=== PATIENT | female | born 1965 | race Caucasian/White ===

== ENCOUNTER → 2016-08-22 | Outpatient (CLI) | payer BC ==
[2016-08-22 16:44] LABS: Follicle Stimulating Hormone 48.9 mIU/mL
== END | disposition home or self-care (01) ==
LOC: LABWHC1 15:47
PROVIDERS: ATTEND Obstetrics & Gynecology
DX: G40.909 Epilepsy, unspecified, not intractable, without status epilepticus (principal); E66.3 Overweight; N92.6 Irregular menstruation, unspecified
CPT/HCPCS: 36415; 80184; 82670; 83001; 83002; 84439; 84443

== ENCOUNTER → 2017-08-10 | Outpatient (CLI) | payer BC ==
--- NOTE | 2017-08-10 19:50 | MR ---
EXAMINATION TYPE: MR brain wo con DATE OF EXAM: 08/10/2017 COMPARISON: NONE HISTORY: idiopathic epilepsy CONTRAST: Performed utilizing 0 mL intravenous Gadavist gadolinium contrast. TECHNIQUE: Multiplanar, multiecho imaging on a 3.0 Kaitlynn magnet is performed through the brain. Stud y is performed within 24 hours of arrival to the hospital. The craniovertebral junction is normal. The pituitary is normal. Diffusion-weighted imaging is performed. No abnormal hyperintensity is present to suggest an acute i ntracranial infarct or acute ischemic change. There are scattered punctate areas of hyperintensity on T2 and Inversion Recovery weighted sequences which are non-specific but can be related to microvascular ischemic changes. There is an old lacunar infarct within the left basal lesion. Ventricles and sulci are appropriate for the patient age. IMPRESSIONS: 1. Scattered periventricular white matter changes. These are nonspecific but could be related to micr ovascular ischemic change. This is out of proportion to the patient's age. Consider other etiologies within the differential.
== END | disposition home or self-care (01) ==
LOC: RADMRIMAIN 11:12
PROVIDERS: ATTEND Psychiatry & Neurology Neurology
DX: R90.82 White matter disease, unspecified (principal); G40.009 Localization-related (focal) (partial) idiopathic epilepsy and epileptic syndromes with seizures of localized onset, not intractable, without status epilepticus
CPT/HCPCS: 70551

== ENCOUNTER → 2019-02-12 | Outpatient (CLI) | payer BC ==
--- NOTE | 2019-02-14 13:54 | MM ---
Reason for exam: screening (asymptomatic). Last mammogram was performed 3 years ago. History: Patient is postmenopausal and is nulliparous. Took hormonal contraceptives for 25 years. Physical Findings: A clinical breast exam by your physician is recommended on an annual basis and results should be correlated with mammographic findings. MG Screening Mammo w CAD Bilateral CC and MLO view(s) were taken. Prior study comparison: February 01, 2016, bilateral MG screening mammo w CAD. May 05, 2005, bilateral screening mammogram w/CAD. The breast tissue is heterogeneously dense. This may lower the sensitivity of mammography. Stable benign calcifications. There is no discrete abnormality. No significant changes when compared with prior studies. ASSESSMENT: Benign, BI-RAD 2 RECOMMENDATION: Routine screening mammogram of both breasts in 1 year.
== END ==
LOC: RADMAMWWP 17:04
PROVIDERS: ATTEND Obstetrics & Gynecology
DX: Z12.31 Encounter for screening mammogram for malignant neoplasm of breast (principal)
CPT/HCPCS: 77067

== ENCOUNTER 2020-01-04 17:10 | Emergency (ER) | payer BC ==
[2020-01-04 17:16] VITALS: BP 136/87; PULSE 72; RESP 18; TEMP 97.4
--- NOTE | 2020-01-04 17:25 | ED ---
General Adult HPI - General Chief complaint: Extremity Injury, Upper Stated complaint: Lt wrist injury Time Seen by Provider: 01/04/20 17:23 Source: patient Mode of arrival: ambulatory Limitations: no limitations - History of Present Illness Initial comments: 54-year-old female presenting to the emergency department with a chief complaint of wrist pain. Patient states this occurred about one hour prior to ever when she was on a sailboat, lost balance and FOOSH. She reports minimal pain is states she has full range of motion. She does report some swelling along the lateral aspect of the wrist. Denies any scaphoid tenderness. Denies taking medication to alleviate the pain. States active range of motion makes the pain slightly worse. Rest is making them better. Denies numbness or tingling. - Related Data Home Medications Medication Instructions Recorded Confirmed PHENobarbital 90 mg PO DAILY 05/03/14 05/03/14 Previous Rx's Medication Instructions Recorded Naproxen Sodium [Anaprox Ds] 550 mg PO Q12HR #20 tab 05/04/14 traMADol HCl [Ultram] 50 mg PO Q4H PRN #20 tab 05/04/14 Allergies Allergy/AdvReac Type Severity Reaction Status Date / Time No Known Allergies Allergy Verified 01/04/20 17:16 Review of Systems ROS Statement: Those systems with pertinent positive or pertinent negative responses have been documented in the HPI. ROS Other: All systems not noted in ROS Statement are negative. Past Medical History Past Medical History: Seizure Disorder History of Any Multi-Drug Resistant Organisms: None Reported Past Surgical History: No Surgical Hx Reported Additional Past Surgical History / Comment(s): D&C Past Psychological History: No Psychological Hx Reported Smoking Status: Never smoker Past Alcohol Use History: Occasional Past Drug Use History: None Reported General Exam Limitations: no limitations General appearance: alert, in no apparent distress Head exam: Present: atraumatic, normocephalic, normal inspection Eye exam: Present: normal appearance, PERRL, EOMI Pupils: Present: normal accommodation ENT exam: Present: normal exam, normal oropharynx, mucous membranes moist, TM's normal bilaterally, normal external ear exam Neck exam: Present: normal inspection, full ROM. Absent: tenderness Respiratory exam: Present: normal lung sounds bilaterally. Absent: respiratory distress, wheezes, rales Cardiovascular Exam: Present: regular rate, normal rhythm, normal heart sounds. Absent: bradycardia, tachycardia Extremities exam: Present: full ROM, tenderness (Mild tenderness along the lateral aspect of her right wrist. No scaphoid tenderness.), normal capillary refill, other (+2 ulnar radial pulses bilaterally.). Absent: normal inspection (Small region of swelling along the lateral aspect of the left wrist.), pedal edema, joint swelling, calf tenderness Back exam: Present: normal inspection, full ROM. Absent: tenderness, CVA tenderness (R), CVA tenderness (L) Neurological exam: Present: alert, oriented X3 Psychiatric exam: Present: normal affect, normal mood Skin exam: Present: warm, dry, intact, normal color Course Vital Signs 01/04/20 17:13 Temperature 97.4 F L Pulse Rate 72 Respiratory 18 Rate Blood Pressure 136/87 O2 Sat by Pulse 99 Oximetry Procedures - Orthopedic Splinting/Casting Injury #1 Side: left Upper Extremity Injury Location: wrist Upper Extremity Immobilizer: volar splint, David wrap, synthetic pre-padded splint Medical Decision Making - Medical Decision Making 54-year-old female presenting to the emergency department with chief complaint of left wrist pain. On Physical examination, she is neurovascularly intact. No scaphoid tenderness. X-ray reveals distal metaphyseal fracture of the left radius. No displacement. Patient was offered analgesia, she declined. Although she did accept Tylenol 3 starter pack to go home with. Full her splint applied. She was advised to follow with business specialist. Return parameters discussed the patient is understanding and agreeable. Case discussed with physician. Disposition Clinical Impression: Left wrist injury, Distal radius fracture, left Disposition: HOME SELF-CARE Condition: Stable Instructions (If sedation given, give patient instructions): Wrist Fracture in Adults (ED) Additional Instructions: Alternate between Tylenol and Motrin for pain control. Follow with orthopedics. Return to emergency department if symptoms worsen. Is patient prescribed a controlled substance at d/c from ED?: No Referrals: Brigitte Ha MD [Primary Care Provider] - 1-2 days Time of Disposition: 19:14
--- NOTE | 2020-01-04 18:57 | XR ---
EXAMINATION TYPE: XR wrist complete LT DATE OF EXAM: 01/04/2020 COMPARISON: None HISTORY: Fall, pain TECHNIQUE: 4 view left wrist FINDINGS: There is a transverse fracture of the distal radius. Overlying soft tissue swelling is pres ent. No additional fractures are evident. Joint spaces appear preserved. If there is pain at the anatomic snuff box, nuclear medicine bone scan or MRI could be performed. IMPRESSION: 1. Distal metaphyseal radial fracture. 2. Soft tissue swelling over the fracture site.
[2020-01-04] MEDS ORDERED: ACET/COD 300 MG/30 MG STARTER PACK 6 TAB BTL PO STA (19:15)
== END 2020-01-04 19:38 | disposition home or self-care (01) ==
LOC: EC 17:10
DX: S52.502A Unspecified fracture of the lower end of left radius, initial encounter for closed fracture (principal); G40.909 Epilepsy, unspecified, not intractable, without status epilepticus; Z79.899 Other long term (current) drug therapy; V93.32XA Fall on board fishing boat, initial encounter; Y92.89 Other specified places as the place of occurrence of the external cause
CPT/HCPCS: 29125; 99283

== ENCOUNTER → 2020-04-16 | Outpatient (CLI) | payer BC ==
--- NOTE | 2020-04-21 15:36 | EM ---
EVENT MONITOR [id number] HOLTER MONITOR: AGE: 55 SEX: Female INDICATIONS: Patient is a 55-year-old female with palpitations. This 24-hour Holter monitor shows sinus mechanism with heart rates ranging from 42 to 136 beats per minute, average 69 beats per minute; occasional daytime bradycardia in the afternoons down to 39 beats per minute; a daytime pause of 3 seconds; occasional nighttime non-sustained atrial tachycardia. MMODAda / VENKATN: [id number] /
== END | disposition home or self-care (01) ==
LOC: RADECHMAIN 11:59
PROVIDERS: ATTEND Family Medicine
DX: R00.2 Palpitations (principal)
CPT/HCPCS: 93225; 93226

== ENCOUNTER → 2020-05-04 | Outpatient (CLI) | payer BC ==
--- NOTE | 2020-05-04 19:26 | BD ---
EXAMINATION TYPE: Axial Bone Density DATE OF EXAM: 05/04/2020 COMPARISON: NONE CLINICAL HISTORY: Postmenopausal screening Height: 65 IN Weight: 179 LBS FRAX RISK QUESTIONS: History of Fracture in Adulthood: LT WRIST AGE 54 RISK FACTORS HISTORY OF: PT STATES SHE HAS SHAURERMANS DISEASE SINCE AGE 15. Family History of Osteoporosis: YES FATHER; GRANDMOTHER(P) Active: YES Postmenopausal woman: AGE 52 Take estrogen and/or progesterone medications: NOT NOW How long: TOOK CONTROL ON AND OFF FOR 20 YEARS MEDICATIONS: Additional Medications: EPILEPSY MEDS, MAGNESIUM, MELATONIN, PROBIOTIC, EXAM MEASUREMENTS: Bone mineral densitometry was performed using the [employer] System. Bone mineral density as measured about the Lumbar spine is: ----- L1-L4(G/cm2): 1.495 T Score Values are as follows: ----- L2: 2.0 ----- L3: 3.0 ----- L4: 2.6 ----- L1-L4: 2.6 Bone mineral density BASELINE Bone mineral density about the R hip (g/cm2): 0.986 Bone mineral density about the L hip (g/cm2): 0.981 T Score values are as follows: -----R Neck: -0.4 -----L Neck: -0.4 -----R Total: -0.2 -----L Total: -0.3 Bone mineral density BASELINE IMPRESSION: Normal (Values between +1 and -1 indicate normal bone mass). Consider repeating this study in 5 year s or sooner if there is some new clinical indication. NOTE: T-SCORE=SD OF THE YOUNG ADULT MEAN.
--- NOTE | 2020-05-06 08:20 | MM ---
Reason for exam: screening (asymptomatic). Last mammogram was performed 1 year and 3 months ago. History: Patient is postmenopausal and is nulliparous. Took hormonal contraceptives for 25 years. Physical Findings: A clinical breast exam by your physician is recommended on an annual basis and results should be correlated with mammographic findings. MG Screening Mammo w CAD Bilateral CC and MLO view(s) were taken. Prior study comparison: February 12, 2019, bilateral MG screening mammo w CAD. February 01, 2016, bilateral MG screening mammo w CAD. The breast tissue is heterogeneously dense. This may lower the sensitivity of mammography. No significant changes when compared with prior studies. ASSESSMENT: Benign, BI-RAD 2 RECOMMENDATION: Routine screening mammogram of both breasts in 1 year.
== END ==
LOC: RADMAMWWP 14:31
PROVIDERS: ATTEND Obstetrics & Gynecology
DX: Z12.31 Encounter for screening mammogram for malignant neoplasm of breast (principal); Z13.820 Encounter for screening for osteoporosis; Z78.0 Asymptomatic menopausal state
CPT/HCPCS: 77067; 77080

== ENCOUNTER → 2020-05-11 | Outpatient (CLI) | payer BC ==
[2020-05-12 02:13] LABS: T4, Free (Free Thyroxine) 1.2 ng/dL (0.80-1.80)
== END | disposition home or self-care (01) ==
LOC: LABWHC1 15:22
PROVIDERS: ATTEND Internal Medicine Interventional Cardiology
DX: R00.1 Bradycardia, unspecified (principal)
CPT/HCPCS: 36415; 84439; 84443

== ENCOUNTER → 2021-02-17 | Outpatient (CLI) | payer BC ==
--- NOTE | 2021-02-17 16:17 | CT ---
EXAMINATION TYPE: CT heart w calcium score DATE OF EXAM: 02/17/2021 COMPARISON: None. HISTORY: Screening for cardiovascular disorder. 213.9 CT DLP: 69.5 mGycm Automated exposure control for dose reduction was used. CT CALCIUM SCORING Coronary calcium is a marker for plaque (fatty deposits) in a blood vessel or atherosclerosis (harden ing of the arteries). The presence and amount of calcium detected in a coronary artery by the CT sca n, indicates the presence and amount of atherosclerotic plaque. These calcium deposits appear years before the development of heart disease symptoms such as chest pain and shortness of breath. A calcium score is computed for each of the coronary arteries based upon the volume and density of th e calcium deposits. This can be referred to as your calcified plaque burden. It does not correspond directly to the percentage of narrowing in the artery but does correlate with the severity of the un derlying coronary atherosclerosis. PROCEDURE TECHNIQUE - Prospective Gating was used. Slice thickness: 3mm. Density threshold (HU): 130, Pixel threshold: 3, Algorithm: discrete. RESULTS Region: LM Calcium Score (Agatston): 0 Volume (mm3): 0 Mass (g): 0 Region: RCA Calcium Score (Agatston): 28.72 Volume (mm3): 37.29 Mass (g): 12.43 Region: LAD Calcium Score (Agatston): 93.16 Volume (mm3): 78.01 Mass (g): 26 Region: CX Calcium Score (Agatston): 45.72 Volume (mm3): 15.15 Mass (g): 45.44 Region: PDA Calcium Score (Agatston): 0 Volume (mm3): 0 Mass (g): 0 Total: Calcium Score (Agatston): 167.6 Volume (mm3): 160.74 Mass (g): 53.58 There is partial visualization dual-lead pacemaker. Overlying lungs are grossly clear. Exaggerated th oracic kyphosis is present. IMPRESSION: Calcium Score: 101-400 Implication: Definite, at least moderate atherosclerotic plaque. Risk of Coronary Artery Disease: Mild coronary artery disease highly likely, significant narrowings p ossible CALCIUM SCORE IMPLICATION RISK OF C ORONARY ARTERY DISEASE 0 No identifiable plaque Very low, generally less than 5% 1-10 Minimal identifiable plaque Very unlikely, less than 10% 11-100 Definite, at least mild atherosclerotic plaque Mild or m inimal coronary narrowings likely 101-400 Definite, at least moderate atherosclerotic plaque Mild coronary ar yoav disease highly likely, significant narrowing possible 401 or Higher Extensive atherosclerotic plaque High lik elihood of at least one significant coronary narrowing
== END | disposition home or self-care (01) ==
LOC: RADCTMAIN 14:57
PROVIDERS: ATTEND Internal Medicine Cardiovascular Disease
DX: I25.10 Atherosclerotic heart disease of native coronary artery without angina pectoris (principal)
CPT/HCPCS: 75571

== ENCOUNTER → 2021-03-19 | Outpatient (CLI) | payer BC ==
--- NOTE | 2021-03-19 16:04 | CT ---
EXAMINATION TYPE: CT abdomen pelvis wo/w con DATE OF EXAM: 03/19/2021 COMPARISON: NONE HISTORY: 48-year-old female pelvic pain and cramping TECHNIQUE: Contiguous axial scanning of the abdomen and pelvis before and after administration of 100 ml Isovue 300 IV contrast. Delayed images through the kidneys and coronal/sagittal reconstructions performed. CT DLP: 1698.2 mGycm Automated exposure control for dose reduction was used. FINDINGS: Pacemaker leads are present. Heart normal size without pericardial effusion. Lung bases delia ar without pleural effusion. Small hiatal hernia. No focal liver lesion or biliary ductal dilatation. Portal venous system is patent. Junctional fold within the gallbladder. No abnormal gallbladder distention. Adrenal glands, kidneys, spleen, and pancreas within normal limits. No dilated small bowel, free fluid, or free air. No mesenteric or retroperitoneal lymphadenopathy. Normal appendix. Oral contrast progressed to the mid transverse colon. Mild overall stool burden. No pericolonic infla mmatory change. Bladder urine distended. Very mild circumferential wall thickening. Uterus anteverted. Right-sided pe lvic phlebolith. Both ovaries are visualized. No abnormal fluid collection in the pelvis. Some promin ent but nonenlarged inguinal lymph nodes measuring up to 9 mm. Bones: Mild degenerative change at the hips. Facet arthropathy mid to lower lumbar spine. Anterior en dplate spondylosis lower thoracic spine. IMPRESSION: 1. MILD CIRCUMFERENTIAL WALL THICKENING OF THE BLADDER MAY BE CHRONIC FOR THE PATIENT. CORRELATE TO E XCLUDE CYSTITIS. 2. IF SYMPTOMS PERSIST, CONSIDER PELVIC ULTRASOUND EVALUATION. 3. SMALL HIATAL HERNIA.
== END | disposition home or self-care (01) ==
LOC: RADCTMAIN 11:55
PROVIDERS: ATTEND Obstetrics & Gynecology
DX: K44.9 Diaphragmatic hernia without obstruction or gangrene (principal)
CPT/HCPCS: 74178; Q9967

== ENCOUNTER → 2021-12-09 | Outpatient (CLI) | payer BC ==
--- NOTE | 2021-12-10 18:06 | MM ---
Reason for Exam: Screening (asymptomatic). Last mammogram was performed 1 year(s) and 7 month(s) ago. Patient History: Menarche at age 11. Patient has no children. Postmenopausal. Patient used Hormonal Contraceptives for 25 years. Risk Values: Alissa 5 year model risk: 1.5%. NCI Lifetime model risk: 8.5%. Prior Study Comparison: 02/01/2016 Bilateral Screening Mammogram, [facility]. 02/12/2019 Bilateral Screening Mammogram, [facility]. 05/04/2020 Bilateral Screening Mammogram, [facility]. Tissue Density: There are scattered fibroglandular densities. Findings: Analyzed By CAD. Chronic nodularity in the posterior left medial lateral oblique view. No suspicious groups of microcalcifications, spiculated or lobular masses, architectural distortion or other secondary signs of malignancy are mammographically apparent. Overall Assessment: Benign, BI-RAD 2 Management: Screening Mammogram of both breasts in 1 year. A negative mammogram report should not preclude additional follow up of suspicious palpable abnormalities. Patient should continue monthly self breast exam. A clinical breast exam by your physician is recommended on an annual basis and results should be correlated with mammographic findings. Electronically signed and approved by: Eric Ramon D.O. Radiologis
== END | disposition home or self-care (01) ==
LOC: RADMAMWWP 16:00
PROVIDERS: ATTEND Family Medicine
DX: Z12.31 Encounter for screening mammogram for malignant neoplasm of breast (principal)
CPT/HCPCS: 77063; 77067

== ENCOUNTER → 2023-03-07 | Outpatient (CLI) | payer BC ==
--- NOTE | 2023-03-07 12:51 | US ---
EXAMINATION TYPE: US extremity nonvasc mass LT DATE OF EXAM: 03/07/2023 COMPARISON: NONE CLINICAL INDICATION: Female, 58 years old with history of m79.662 PAIN LOW LEFT LEG; Left lower leg a ingrid of pain Left lower medial leg: scanned at patient's area of pain - appears wnl IMPRESSION: 1. No suspicious ultrasound abnormality to account for pain at the area of concern.
== END | disposition home or self-care (01) ==
LOC: RADUSWWP 12:16
PROVIDERS: ATTEND Family Medicine
DX: M79.662 Pain in left lower leg (principal)

== ENCOUNTER → 2023-03-23 | Outpatient (CLI) | payer BC ==
--- NOTE | 2023-03-24 20:24 | MM ---
Reason for Exam: Screening (asymptomatic). Last mammogram was performed 1 year(s) and 3 month(s) ago. Patient History: Menarche at age 11. Patient has no children. Postmenopausal. Patient used Hormonal Contraceptives for 25 years. Risk Values: Alissa 5 year model risk: 1.6%. NCI Lifetime model risk: 8.1%. Prior Study Comparison: 02/12/2019 Bilateral Screening Mammogram, [facility]. 05/04/2020 Bilateral Screening Mammogram, [facility]. 12/09/2021 Bilateral MG 3D screening mammo w/cad, [facility]. Tissue Density: There are scattered fibroglandular densities. Findings: Analyzed By CAD. Generator device projecting over the left pectoralis. There is no suspicious group of microcalcifications or new suspicious mass in either breast. Overall Assessment: Benign, BI-RAD 2 Management: Screening Mammogram of both breasts in 1 year. . Patient should continue monthly self-breast exams. A clinical breast exam by your physician is recommended on an annual basis. This exam should not preclude additional follow-up of suspicious palpable abnormalities. Note on Alissa scores and lifetime risk: 1. A Alissa score greater than 3% is considered moderate risk. If this is the case, consider specialist referral to assess eligibility for a risk reducing agent. 2. If overall lifetime risk for the development of breast cancer is 20% or higher, the patient may qualify for future screening with alternating mammogram and breast MRI. Electronically signed and approved by: Florinda Siu M.D. Radiologist
== END | disposition home or self-care (01) ==
LOC: RADMAMWWP 15:00
PROVIDERS: ATTEND Family Medicine
DX: Z12.31 Encounter for screening mammogram for malignant neoplasm of breast (principal); Z78.0 Asymptomatic menopausal state
CPT/HCPCS: 77063; 77067

== ENCOUNTER → 2023-03-24 | Outpatient (CLI) | payer BC ==
[2023-03-24 19:11] LABS: Testosterone <10.00 ng/dL (7.00-45.62)
[2023-03-24 19:52] LABS: Follicle Stimulating Hormone 39.7 mIU/mL
== END | disposition home or self-care (01) ==
LOC: LABWHC1 12:21
PROVIDERS: ATTEND Obstetrics & Gynecology
DX: Z79.890 Hormone replacement therapy (principal)
CPT/HCPCS: 36415; 82670; 83001; 84144; 84403

== ENCOUNTER → 2024-05-17 | Outpatient (CLI) | payer BC ==
--- NOTE | 2024-05-17 10:02 | CT ---
EXAMINATION TYPE: CT lumbar spine wo con DATE OF EXAM: 05/17/2024 9:28 AM COMPARISON: None. CLINICAL INDICATION: Female, 59 years old with history of R20.2 PARESTHESIA OF SKIN; PHH, Bilateral f eet neuropathy. TECHNIQUE: Unenhanced CT of the lumbar spine was performed. Bone and soft tissue window settings are submitted as well as coronal and sagittal reconstructions. CT DLP: 473.2 mGycm Automated exposure control for dose reduction was used. FINDINGS: There are 5 lumbar-type vertebra. There is slight grade 1 retrolisthesis L1 on L2. Vertebral body hei ghts are preserved. There is mild disc space narrowing at L1-L2 and L3-L4 levels. Axial images at L2-L3 level show [id number] broad disc bulge effacing anterior thecal sac and m oderate facet arthropathy and ligamentum flavum hypertrophy effacing the right posterior lateral thec al sac. There is slightly asymmetric mild to moderate left-sided neural foraminal narrowing. Axial images at L3-L4 level show mild/moderate broad-based disc bulge effacing anterior thecal sac an d moderate to advanced facet arthropathy bilaterally. There is mild to moderate right greater than le ft bilateral neural foraminal narrowing seen. Axial images at L4-L5 level show moderate to advanced facet arthropathy bilaterally effacing the bila teral posterior lateral thecal sac. There is mild/moderate broad-based posterior disc protrusion effa cing the anterior thecal sac. There is [id number] bilateral neural foraminal narrowing seen. Axial images at the L5-S1 level show advanced right and moderate left-sided facet arthropathy. Spinal canal is preserved. Bilateral neural foramina are patent. Paraspinal muscle bulk is maintained. IMPRESSION: Multilevel degenerative changes are present as detailed above. Most prominent spinal waqas l effacement or stenosis is seen in L3-L4 and L4-L5 levels . [facility], , 05/17/2024 10:00 AM
== END | disposition home or self-care (01) ==
LOC: RADCTMAIN 08:57
PROVIDERS: ATTEND Psychiatry & Neurology Neurology
DX: M51.26 Other intervertebral disc displacement, lumbar region (principal); M47.816 Spondylosis without myelopathy or radiculopathy, lumbar region; R20.2 Paresthesia of skin
CPT/HCPCS: 72131

== ENCOUNTER → 2024-05-17 | Outpatient (CLI) | payer BC ==
--- NOTE | 2024-05-17 08:00 | MM ---
Reason for Exam: Clinical finding. Last mammogram was performed 1 year(s) and 2 month(s) ago. Indicated Problems: Pain of the right side (Global) for 2 Month(s). Patient History: Menarche at age 11. Patient has no children. Postmenopausal. Patient used Hormonal Contraceptives for 25 years. Risk Values: Alissa 5 year model risk: 1.6%. NCI Lifetime model risk: 7.9%. Prior Study Comparison: 02/01/2016 Bilateral Screening Mammogram, [facility]. 02/12/2019 Bilateral Screening Mammogram, [facility]. 05/04/2020 Bilateral Screening Mammogram, [facility]. 12/09/2021 Bilateral MG 3D screening mammo w/cad, [facility]. 03/23/2023 Bilateral MG 3D screening mammo w/cad, [facility]. Tissue Density: The breasts are heterogeneously dense, which may obscure small masses. Findings: Analyzed By CAD. There is retronodular nodularity seen which could reflect underlying cyst, solid mass and/or a prominent ducts. Ultrasound correlation is advised. The remainder of the breast tissues are homogeneous. No suspicious microcalcifications noted. Overall Assessment: Incomplete: need additional imaging evaluation, BI-RAD 0 Management: Diagnostic Breast Ultrasound of the right breast. . Results were given to the patient verbally at the time of exam. Patient should continue monthly self-breast exams. A clinical breast exam by your physician is recommended on an annual basis. This exam should not preclude additional follow-up of suspicious palpable abnormalities. Note on Alissa scores and lifetime risk: 1. A Alissa score greater than 3% is considered moderate risk. If this is the case, consider specialist referral to assess eligibility for a risk reducing agent. 2. If overall lifetime risk for the development of breast cancer is 20% or higher, the patient may qualify for future screening with alternating mammogram and breast MRI. [facility], , 05/17/2024 7:57 AM. Electronically signed and approved by: Pravin Leon M.D. Radiologis
--- NOTE | 2024-05-17 08:20 | USB ---
Reason for Exam: Clinical finding. Indicated Problems: Pain of the right side (Global). Patient History: Menarche at age 11. Patient has no children. Postmenopausal. Patient used Hormonal Contraceptives for 25 years. Risk Values: Alissa 5 year model risk: 1.6%. NCI Lifetime model risk: 7.9%. Technique: Method: Targeted. Doppler: Color. Patient Position: Supine. Prior Study Comparison: 05/04/2020 Bilateral Screening Mammogram, [facility]. 12/09/2021 Bilateral MG 3D screening mammo w/cad, [facility]. 03/23/2023 Bilateral MG 3D screening mammo w/cad, [facility]. Findings: The periareolar of the right breast, the axilla of the right breast and the retroareolar of the right breast were scanned. Retroareolar increased fibroglandular tissue suspected without evidence for distinct mass. Six-month follow-up mammography and ultrasound advised. Overall Assessment: Probably benign, BI-RAD 3 Management: Diagnostic Mammogram of the right breast in 6 months. A clinical breast exam by your physician is recommended on an annual basis and results should be correlated with mammographic findings. This exam should not preclude additional follow-up of suspicious palpable abnormalities. Results were given to the patient verbally at the time of exam. [facility], , 05/17/2024 8:17 AM. Electronically signed and approved by: Pravin Leon M.D. Radiologis
--- NOTE | 2024-05-17 12:45 | BD ---
EXAMINATION TYPE: Axial Bone Density DATE OF EXAM: 05/17/2024 CLINICAL HISTORY: 59 years old Female. ICD-10 CODE: Z78.0 POST MENOPAUSAL , Additional History: Height: 64.5 in Weight: 159 lbs FRAX RISK QUESTIONS: Family History (Parent hip fracture): yes father History of Fracture in Adulthood: lt wrist fx age 55 Secondary Osteoporosis: RISK FACTORS HISTORY OF: History of Wrist Fracture: lt wrist fx age 53 MEDICATIONS: EXAM MEASUREMENTS: Bone mineral densitometry was performed using the [employer]. Bone mineral density as measured about the Lumbar spine is: ----- L1-L4(G/cm2): 1.497 T Score Values are as follows: ----- L1: 2.6 ----- L2: 2.3 ----- L3: 3.0 ----- L4: 2.4 ----- L1-L4: 2.6 Z Score Values are as follows: ----- L1: 3.7 ----- L2: 3.3 ----- L3: 4.1 ----- L4: 3.4 ----- L1-L4: 3.7 Bone mineral density has: Decreased -1.7% since study of: 05/04/2020 Bone mineral density about the R hip (g/cm2): 0.978 Bone mineral density about the L hip (g/cm2): 0.956 T Score values are as follows: -----R Neck: -0.3 -----L Neck: -0.4 -----R Total: -0.2 -----L Total: -0.4 Z Score values are as follows: -----R Neck: 0.8 -----L Neck: 0.7 -----R Total: 0.6 -----L Total: 0.4 Bone mineral density has: Decreased -0.9% since study of: 05/04/2020 FRAX%s: The graph provided illustrates a 22.5% chance for a major osteoporotic fx and a 0.4% chance f or the hips probability for fx in 10 years time. IMPRESSION: Normal (Values between +1 and -1 indicate normal bone mass). Consider repeating this study in 5 year s or sooner if there is some new clinical indication. NOTE: T-SCORE=SD OF THE YOUNG ADULT MEAN. [facility], , 05/17/2024 12:43 PM
== END | disposition home or self-care (01) ==
LOC: RADMAMWWP 07:36
PROVIDERS: ATTEND Obstetrics & Gynecology
DX: N64.4 Mastodynia (principal); R92.333 Mammographic heterogeneous density, bilateral breasts; Z92.0 Personal history of contraception; Z78.0 Asymptomatic menopausal state
CPT/HCPCS: 77062; 77066; 77080